=== PATIENT | female | born 1975 | race Caucasian/White ===

== ENCOUNTER 2019-09-25 12:14 | Day surgery (SDC) | payer MEDICAID ==
[~2019-09-25] VITALS: Ht 162.6 cm; Wt 66.4 kg
[~2019-09-25 12:14] MED LIST: GLIM4TAB8 PO
--- NOTE | 2019-09-25 12:30 | NUR ---
PT AMBULATED WITH A SMOOTH AND STEADY GAIT BACK TO ROOM ,NAD, RESP WNL, FCS NO SOB, RESTING IN GURNEY IN GOWN, GIVEN WARM BLANKET FOR COMFORT. WCTM.
[2019-09-25] MEDS ORDERED: SODIUM CHLORIDE FLUSH 10ML SYR IVF ONE (13:00)
--- NOTE | 2019-09-25 13:00 | NUR ---
REPORT TO JANINA AMOS PT CARE TRANSFERRED AT THIS TIME.
[2019-09-25 13:05] LABS: BASOPHILS # (AUTO) 0.02 x10^3/uL (0-0.1); BASOPHILS % (AUTO) 0 % (0-1); EOSINOPHILS % (AUTO) 1 % (1-7); LYMPHOCYTES # (AUTO) 1.78 x10^3/uL (1-3.4); LYMPHOCYTES % (AUTO) 22 % (22-44); MD NO; MEAN CORPUSCULAR HEMOGLOBIN 24.7 pg (27.0-34.8); MEAN CORPUSCULAR HGB CONC 32.3 g/dL (32.4-35.8); MEAN CORPUSCULAR VOLUME 76.4 fL (80-100); MEAN PLATELET VOLUME 7.5 fL (7.4-10.4); MONOCYTES # (AUTO) 0.31 x10^3/uL (0.2-0.8); MONOCYTES % (AUTO) 4 % (2-9); NEUTROPHILS # (AUTO) 5.94 x10^3/uL (1.8-6.8); NEUTROPHILS % (AUTO) 73 % (42-75); PLATELET COUNT 305 x10^3/uL (130-400); RED BLOOD COUNT 5.14 x10^6/uL (3.82-5.3); RED CELL DISTRIBUTION WIDTH 15.6 % (9.6-15.2)
[2019-09-25 13:15] LABS: ALBUMIN 3.7 g/dL (3.4-5.0); ANION GAP 9 mmol/L (5-15); CALCIUM 9.6 mg/dL (8.5-10.1); CHLORIDE 104 mmol/L (98-107); CREATININE 0.78 mg/dL (0.55-1.02)
[2019-09-25] MEDS ORDERED: MIDAZOLAM 1 MG/ML, 2ML ONE ×2 (13:44→14:15)
[2019-09-25] MEDS ORDERED: FENTANYL PF 250 MCG/5ML ONE (13:44)
--- NOTE | 2019-09-25 13:44 | NUR ---
Report to Nela in Pre-Op, pt to be transported to surgery by customer order clerk
[2019-09-25] MEDS ORDERED: BUPIVACAINE/PF-EPI 0.5% 1:200K ONE (13:48)
[2019-09-25] MEDS ORDERED: CHLORHEXIDINE 15 ML UDC MM STA (13:50)
[2019-09-25 13:56] VITALS: BP 129/79
[2019-09-25] MEDS ORDERED: CHLORHEXIDINE 15 ML UDC ONE (13:58)
[2019-09-25] MEDS ORDERED: CEFOTETAN PMX 2GM/50ML 50 ML ONE (14:14)
[2019-09-25] MEDS ORDERED: GLYCOPYRROLATE 0.2MG/1ML, 5ML ONE ×2 (14:15→15:08)
[2019-09-25] MEDS ORDERED: NEOSTIGMINE 1 MG/ML, 10ML ONE ×2 (14:15→15:08)
[2019-09-25] MEDS ORDERED: CEFOTETAN PMX 2GM/50ML 50 ML IVPB ONE (14:15)
[2019-09-25] MEDS ORDERED: KETOROLAC 30 MG/1 ML ONE ×2 (14:15→14:51)
[2019-09-25] MEDS ORDERED: ROCURONIUM 10 MG/ML,10ML ONE (14:15)
[2019-09-25] MEDS ORDERED: DEXAMETHASONE 4 MG/ML, 1ML ONE ×2 (14:15→15:08)
[2019-09-25] MEDS ORDERED: PROPOFOL 10 MG/ML, 20ML ONE ×2 (14:15→15:08)
[2019-09-25] MEDS ORDERED: ONDANSETRON 2MG/ML, 2ML ONE ×2 (14:15→15:08)
[2019-09-25] MEDS ORDERED: CHLORHEXIDINE 15 ML UDC MM ONE (14:30)
[2019-09-25] MEDS ORDERED: LABETALOL 5MG/ML, 20ML IV PRN (14:30)
[2019-09-25] MEDS ORDERED: FENTANYL PF 100 MCG/2ML IV PRN (14:30)
[2019-09-25] MEDS ORDERED: MEPERIDINE/PF 25MG/0.5ML IVPush PRN (14:30)
[2019-09-25] MEDS ORDERED: hydrALAzine 20 MG/ML, 1ML IV PRN (14:30)
[2019-09-25] MEDS ORDERED: OXYcodone 5 MG/5 ML ORAL.SOL UDC PO PRN (14:30)
[2019-09-25] MEDS ORDERED: PROMETHAZINE 25 MG/ML, 1ML IVPush PRN (14:30)
[2019-09-25] MEDS ORDERED: HALOPERIDOL 5 MG/ML IV PRN (14:30)
[2019-09-25] MEDS ORDERED: morphine SULFATE 10 MG/ML, 1ML IVPush PRN (14:30)
[2019-09-25] MEDS ORDERED: HYDROmorphone 1 MG/ML, 1ML INJ IVPush PRN (14:30)
[2019-09-25] MEDS ORDERED: ROCURONIUM 10MG/ML,5ML ONE (15:08)
[2019-09-25] MEDS ORDERED: OXYcodone 5 MG/5 ML ORAL.SOL UDC ONE (15:37)
[2019-09-25] MEDS ORDERED: FENTANYL PF 100 MCG/2ML ONE (15:37)
== END 2019-09-25 17:35 | disposition home or self-care (01) ==
LOC: ED 13:12
PROVIDERS: ATTEND Surgery
DX: K43.6 Other and unspecified ventral hernia with obstruction, without gangrene (principal); E11.9 Type 2 diabetes mellitus without complications; K21.9 Gastro-esophageal reflux disease without esophagitis; Z79.84 Long term (current) use of oral hypoglycemic drugs; Z88.0 Allergy status to penicillin; Z88.2 Allergy status to sulfonamides; Z98.51 Tubal ligation status; Z80.3 Family history of malignant neoplasm of breast
CPT/HCPCS: 36415; 49561; 49568; 80048; 82040; 84703; 85025; 96374; 99285; C1781; J1100; J1885; J2250; J2405; J2704; J2710; J3010; J3490

== ENCOUNTER → 2020-06-07 | Outpatient (CLI) | payer MEDICAID | END | disposition home or self-care (01) | LOC: CFH 15:01 | PROVIDERS: ATTEND Obstetrics & Gynecology | DX: Z12.31 Encounter for screening mammogram for malignant neoplasm of breast (principal) | CPT/HCPCS: 77063; 77067 ==

== ENCOUNTER 2021-02-03 18:22 | Emergency (ER) | payer MEDICAID ==
[~2021-02-03] VITALS: Ht 162.6 cm; Wt 66.1 kg
--- NOTE | 2021-02-03 21:28 | NUR ---
NIL X1 WHEN CALLED BY PROVIDER
--- NOTE | 2021-02-03 22:29 | NUR ---
PT. AMBULATORY TO ROOM FORM LOBBY AT THIS TIME. C/O RIGHT SHOULDER PAIN THAT RADIATES DOWN TO RIHGT HAND ASSOCIATED WITH N/T. PT. REPORTS INJURY TO LEFT FOREARM AT WORK 4 MONTHS AGO AND STATES SHE BELIEVES THIS IS R/T TO THAT INJURY. FULL ROM. FULL STRENGHT BILAT UE.
--- NOTE | 2021-02-03 23:38 | NUR ---
DR. TINSLEY IN TO EVAL PT. AND DISCUSS PLAN FOR D/C WITH PT.
[2021-02-03 23:57] VITALS: BP 129/68
== END 2021-02-03 23:59 | disposition home or self-care (01) ==
LOC: ED 23:46
DX: S16.1XXA Strain of muscle, fascia and tendon at neck level, initial encounter (principal); K21.9 Gastro-esophageal reflux disease without esophagitis; E11.9 Type 2 diabetes mellitus without complications; Z88.0 Allergy status to penicillin; Z88.2 Allergy status to sulfonamides; X58.XXXA Exposure to other specified factors, initial encounter; Y93.89 Activity, other specified; Y92.89 Other specified places as the place of occurrence of the external cause
CPT/HCPCS: 99283